=== PATIENT | male | born 1945 ===

== ENCOUNTER 2025-01-25 21:12 | Outpatient (REF) | payer MEDICARE, SELFPAY | END 2025-01-25 21:13 | disposition home or self-care (01) | LOC: LBN 21:12 | PROVIDERS: Visit Provider Nurse Practitioner Family | DX: T14.8XXA Other injury of unspecified body region, initial encounter (principal); L08.9 Local infection of the skin and subcutaneous tissue, unspecified | CPT/HCPCS: 87077; 87070; 87186; 87205 ==

== ENCOUNTER → 2025-01-28 11:21 | Outpatient (BNVA) | payer MEDICARE, SELFPAY | PROVIDERS: Referring Provider Nurse Practitioner Family; Visit Provider Surgery | DX: Z51.89 Encounter for other specified aftercare (principal); B95.62 Methicillin resistant Staphylococcus aureus infection as the cause of diseases classified elsewhere | CPT/HCPCS: 99213 ==

== ENCOUNTER 2025-01-28 12:01 | Outpatient (REF) | payer MEDICARE, SELFPAY ==
--- NOTE | 2025-01-28 12:00 | SKI_PTH ---
PATIENT: Blas Centeno LOC: [facility] U#:[id number] AGE/SX: 79/M ROOM: RE01/28/[address]: Jose Elias Barney MD : 1945 BED: DIS: 01/28/2025 SPEC #: [id number] RECD: 01/28/25 13:24 STATUS: NICOLE REQ #: [id number] MENG: 01/28/25 12:[address]: Jose Elias Barney DEPT: Surgical Specimen RECD BY: Vane Archuleta ENTERED: 01/28/25 13:24 SP TYPE: SKI OTHR DR: Carlos Tamayo Tissues: 1 - SKIN BIOPSY(SHAVE/PUNCH) Procedures: SKIN LEVEL 4 Comments: [id number]
== END 2025-01-28 12:02 | disposition home or self-care (01) ==
LOC: LBN 12:01
PROVIDERS: Visit Provider Surgery
DX: L98.9 Disorder of the skin and subcutaneous tissue, unspecified (principal)
CPT/HCPCS: 88305

== ENCOUNTER → 2025-02-08 11:01 | Outpatient (BNVA) | payer MEDICARE, SELFPAY | PROVIDERS: Referring Provider Nurse Practitioner Family; Visit Provider Surgery | DX: Z51.89 Encounter for other specified aftercare (principal); L98.429 Non-pressure chronic ulcer of back with unspecified severity; L90.5 Scar conditions and fibrosis of skin | CPT/HCPCS: 99024 ==